=== PATIENT | female | born 1950 | race Asian ===

== ENCOUNTER 2018-08-29 15:13 | Inpatient (IN) | payer MEDICARE ==
[~2018-08-29] VITALS: Ht 162.6 cm; Wt 58.2 kg
[~2018-08-29 15:13] MED LIST: ASCO500T5 PO; ASPI325T17 PO; BENA10TA4 PO; CEFD300C37 PO; LACT1CAP43 PO; MYCO250C PO; OMEG10007 PO; PANT40TA3 PO; PRAV80TA PO; PRED-402 PO; TACR1CAP4 PO; VITA100C8 PO
[2018-08-29] MEDS ORDERED: SODIUM CHLORIDE FLUSH 10ML SYR IVF ONE (15:30)
[2018-08-29] MEDS ORDERED: SODIUM CHLORIDE 0.9% 1,000ML IVBOLUS ONE (15:30)
[2018-08-29 15:47] LABS: BASOPHILS # (AUTO) 0.05 x10^3/uL (0-0.1); BASOPHILS % (AUTO) 0 % (0-1); EOSINOPHILS % (AUTO) 0 % (1-7); LYMPHOCYTES # (AUTO) 0.43 x10^3/uL (1-3.4); LYMPHOCYTES % (AUTO) 3 % (22-44); MD NO; MEAN CORPUSCULAR HEMOGLOBIN 30.1 pg (27.0-34.8); MEAN CORPUSCULAR HGB CONC 33.3 g/dL (32.4-35.8); MEAN CORPUSCULAR VOLUME 90.3 fL (80-100); MONOCYTES % (AUTO) 3 % (2-9); NEUTROPHILS # (AUTO) 15.75 x10^3/uL (1.8-6.8); NEUTROPHILS % (AUTO) 94 % (42-75); PLATELET COUNT 280 x10^3/uL (130-400); RED BLOOD COUNT 3.67 x10^6/uL (3.82-5.3); RED CELL DISTRIBUTION WIDTH 12.4 % (9.6-15.2)
[2018-08-29 15:57] LABS: ALBUMIN 3.1 g/dL (3.4-5.0); ANION GAP 11 mmol/L (5-15); CALCIUM 8.5 mg/dL (8.5-10.1); CHLORIDE 93 mmol/L (98-107)
[2018-08-29 16:02] LABS: ALANINE AMINOTRANSFERASE 33 U/L (12-78); ALKALINE PHOSPHATASE 74 U/L (45-117); BILIRUBIN,TOTAL 0.4 mg/dL (0.2-1.0); CREATININE 1.26 mg/dL (0.55-1.02); TOTAL PROTEIN 7.9 g/dL (6.4-8.2); TROPONIN I < 0.015 ng/mL (0.000-0.045)
[2018-08-29] MEDS ORDERED: SODIUM CHLORIDE 0.9% 1,000 ML IV ONE (16:07)
[2018-08-29] MEDS ORDERED: ACETAMINOPHEN 500 MG TABLET PO ONE (16:30)
[2018-08-29] MEDS ORDERED: ASPIRIN 325 MG TABLET ONE (16:51)
[2018-08-29] MEDS ORDERED: CEFTRIAXONE 1,000 MG in SODIUM CHLORIDE 0.9% 50 ML IV ONE (17:00)
[2018-08-29 17:18] LABS: RAPID INFLUENZA A Negative (Negative); RAPID INFLUENZA B Negative (Negative)
[2018-08-29] MEDS: SODIUM CHLORIDE 0.9% 1,000 ML IV SCH (17:22)
[2018-08-29] MEDS ORDERED: CEFTRIAXONE PMX 2GM/50ML 50 ML ONE (17:26)
[2018-08-29] MEDS: CEFTRIAXONE PMX 2GM/50ML 50 ML IV SCH (17:29)
[2018-08-29] MEDS ORDERED: ACETAMINOPHEN 325 MG TABLET PO PRN ×2 (17:30)
[2018-08-29] MEDS ORDERED: TEMAZEPAM 15 MG CAPSULE PO PRN (17:30)
[2018-08-29] MEDS ORDERED: AZITHROMYCIN 500 MG in SODIUM CHLORIDE 0.9% 250 ML IV SCH (17:30)
[2018-08-29] MEDS ORDERED: LABETALOL 5MG/ML, 20ML IVPush PRN (17:30)
[2018-08-29] MEDS ORDERED: DOXY100C2 PO (17:36)
[2018-08-29] MEDS ORDERED: [UNRECOGNIZED DRUG - CODE] PO (17:36)
[2018-08-29 18:08] LABS: MEAN CORPUSCULAR HEMOGLOBIN 30.2 pg (27.0-34.8); MEAN CORPUSCULAR HGB CONC 33.3 g/dL (32.4-35.8); MEAN CORPUSCULAR VOLUME 90.8 fL (80-100); MEAN PLATELET VOLUME 6.9 fL (7.4-10.4); PLATELET COUNT 236 x10^3/uL (130-400); RED BLOOD COUNT 3.22 x10^6/uL (3.82-5.3); RED CELL DISTRIBUTION WIDTH 12.7 % (9.6-15.2)
[2018-08-29] MEDS ORDERED: ONDANSETRON 2MG/ML, 2ML IVPush PRN (18:30)
[2018-08-29 18:32] LABS: HEMOGLOBIN A1C 6.1 % (4.2-6.3)
[2018-08-29] MEDS: ENOXAPARIN 40 MG/0.4 ML SQ SCH (18:38)
[2018-08-29] MEDS: OMEGA-3/FISH OIL CAPSULE PO SCH ×2 (18:38→21:00)
[2018-08-29 18:40] LABS: BASOPHILS # (AUTO) 0.02 x10^3/uL (0-0.1); BASOPHILS % (AUTO) 0 % (0-1); EOSINOPHILS % (AUTO) 0 % (1-7); LYMPHOCYTES # (AUTO) 0.46 x10^3/uL (1-3.4); LYMPHOCYTES % (AUTO) 3 % (22-44); MD SCAN; MONOCYTES # (AUTO) 0.81 x10^3/uL (0.2-0.8); MONOCYTES % (AUTO) 5 % (2-9); NEUTROPHILS # (AUTO) 15.18 x10^3/uL (1.8-6.8); NEUTROPHILS % (AUTO) 92 % (42-75)
[2018-08-29] MEDS ORDERED: AZITHROMYCIN 500 MG in DEXTROSE 5% 250 ML IV SCH (18:57)
[2018-08-29 20:52] VITALS: BP 115/64
[2018-08-29] MEDS: AZITHROMYCIN 500 MG in DEXTROSE 5% 250 ML IV SCH (21:05)
[2018-08-29] MEDS: PRAVASTATIN 40 MG TABLET PO SCH (21:06)
[2018-08-29] MEDS: VITAMIN E 400 UNITS CAPSULE PO SCH (21:07)
[2018-08-29] MEDS: TACROLIMUS 1 MG CAPSULE PO SCH (21:07)
[2018-08-29 22:33] LABS: MICROSCOPIC AUTO
[2018-08-29 22:36] LABS: CULTURE INDICATED? YES
[2018-08-30 00:36] VITALS: BP 108/55
[2018-08-30] MEDS ORDERED: FLU VACC QS2017-18 (36MOS+) UP/PF 0.5 ML IM-VACC ONE (03:00)
[2018-08-30] MEDS: SODIUM CHLORIDE 0.9% 1,000 ML IV SCH ×3 (03:32→17:47)
[2018-08-30 05:25] LABS: ALBUMIN 2.5 g/dL (3.4-5.0); ANION GAP 8 mmol/L (5-15); CALCIUM 8.4 mg/dL (8.5-10.1); CHLORIDE 106 mmol/L (98-107)
[2018-08-30 05:31] LABS: BILIRUBIN,TOTAL 0.5 mg/dL (0.2-1.0); CREATININE 0.92 mg/dL (0.55-1.02)
[2018-08-30 05:32] LABS: ALANINE AMINOTRANSFERASE 25 U/L (12-78); ALKALINE PHOSPHATASE 62 U/L (45-117); TOTAL PROTEIN 6.6 g/dL (6.4-8.2)
[2018-08-30 07:15] VITALS: BP 136/73
[2018-08-30] MEDS: TACROLIMUS 1 MG CAPSULE PO SCH ×2 (08:26→20:43)
[2018-08-30] MEDS: OMEGA-3/FISH OIL CAPSULE PO SCH ×3 (08:28→20:42)
[2018-08-30] MEDS: ASCORBIC ACID 500 MG TABLET PO SCH (08:28)
[2018-08-30] MEDS: LACTOBACILLUS CHEW TABLET PO SCH (08:28)
[2018-08-30] MEDS: VITAMIN E 400 UNITS CAPSULE PO SCH ×2 (08:28→20:42)
[2018-08-30] MEDS: PANTOPROZOLE 40MG TABLET PO SCH (08:28)
[2018-08-30] MEDS ORDERED: POTASSIUM PHOSPHATE 44 MEQ in SODIUM CHLORIDE 0.9% 500 ML IV ONE (08:30)
[2018-08-30] MEDS ORDERED: MAGNESIUM SULFATE PMX 2GM/50ML 50 ML IV ONE (08:30)
[2018-08-30] MEDS: BENAZEPRIL 10 MG TABLET PO SCH (08:40)
[2018-08-30] MEDS ORDERED: [UNRECOGNIZED DRUG - REMARK] MC PRN (09:00)
[2018-08-30] MEDS: GUAIFENESIN 200 MG TABLET PO SCH ×3 (09:21→22:48)
[2018-08-30 10:01] LABS: CLOSTRIDIUM DIFFICILE ANTIGEN NEGATIVE; CLOSTRIDIUM DIFFICILE TOXIN NEGATIVE (Negative)
[2018-08-30 13:35] VITALS: BP 132/74
[2018-08-30] MEDS: CEFTRIAXONE PMX 2GM/50ML 50 ML IV SCH (17:45)
[2018-08-30 18:39] VITALS: BP 140/81
[2018-08-30] MEDS: ENOXAPARIN 40 MG/0.4 ML SQ SCH (18:43)
[2018-08-30] MEDS: PRAVASTATIN 40 MG TABLET PO SCH (20:43)
[2018-08-30] MEDS: AZITHROMYCIN 500 MG in DEXTROSE 5% 250 ML IV SCH (20:59)
[2018-08-31 00:47] VITALS: BP 128/75
[2018-08-31] MEDS: SODIUM CHLORIDE 0.9% 1,000 ML IV SCH ×2 (03:02→20:47)
[2018-08-31 05:17] LABS: BASOPHILS # (AUTO) 0.02 x10^3/uL (0-0.1); BASOPHILS % (AUTO) 0 % (0-1); EOSINOPHILS # (AUTO) 0.05 x10^3/uL (0-0.4); EOSINOPHILS % (AUTO) 1 % (1-7); LYMPHOCYTES # (AUTO) 1.84 x10^3/uL (1-3.4); LYMPHOCYTES % (AUTO) 17 % (22-44); MD NO; MEAN CORPUSCULAR HEMOGLOBIN 30.2 pg (27.0-34.8); MEAN CORPUSCULAR HGB CONC 33.4 g/dL (32.4-35.8); MEAN CORPUSCULAR VOLUME 90.4 fL (80-100); MEAN PLATELET VOLUME 6.7 fL (7.4-10.4); MONOCYTES # (AUTO) 0.74 x10^3/uL (0.2-0.8); MONOCYTES % (AUTO) 7 % (2-9); NEUTROPHILS # (AUTO) 8.22 x10^3/uL (1.8-6.8); NEUTROPHILS % (AUTO) 76 % (42-75); PLATELET COUNT 287 x10^3/uL (130-400); RED BLOOD COUNT 3.42 x10^6/uL (3.82-5.3); RED CELL DISTRIBUTION WIDTH 12.7 % (9.6-15.2)
[2018-08-31 05:20] LABS: ALANINE AMINOTRANSFERASE 23 U/L (12-78); ALBUMIN 2.6 g/dL (3.4-5.0); ANION GAP 9 mmol/L (5-15); CALCIUM 8.8 mg/dL (8.5-10.1); CHLORIDE 111 mmol/L (98-107)
[2018-08-31 05:23] LABS: ALKALINE PHOSPHATASE 62 U/L (45-117); BILIRUBIN,TOTAL 0.2 mg/dL (0.2-1.0); TOTAL PROTEIN 6.6 g/dL (6.4-8.2)
[2018-08-31 07:13] VITALS: BP 123/72
[2018-08-31] MEDS: TACROLIMUS 1 MG CAPSULE PO SCH ×2 (09:06→21:08)
[2018-08-31] MEDS: BENAZEPRIL 10 MG TABLET PO SCH (09:06)
[2018-08-31] MEDS: GUAIFENESIN 200 MG TABLET PO SCH ×3 (09:07→21:09)
[2018-08-31] MEDS: PANTOPROZOLE 40MG TABLET PO SCH (09:07)
[2018-08-31] MEDS: ASCORBIC ACID 500 MG TABLET PO SCH (09:07)
[2018-08-31] MEDS: OMEGA-3/FISH OIL CAPSULE PO SCH ×3 (09:07→21:08)
[2018-08-31] MEDS: LACTOBACILLUS CHEW TABLET PO SCH (09:08)
[2018-08-31] MEDS: VITAMIN E 400 UNITS CAPSULE PO SCH ×2 (09:08→21:00)
[2018-08-31] MEDS ORDERED: MAGNESIUM SULFATE PMX 4GM/100M 100 ML IV ONE (10:00)
[2018-08-31] MEDS ORDERED: POTASSIUM PHOSPHATE 44 MEQ in SODIUM CHLORIDE 0.9% 500 ML IV ONE (10:00)
[2018-08-31 13:05] VITALS: BP 131/71
[2018-08-31] MEDS: ENOXAPARIN 40 MG/0.4 ML SQ SCH (18:26)
[2018-08-31 18:44] VITALS: BP 131/79
[2018-08-31] MEDS: CEFTRIAXONE PMX 2GM/50ML 50 ML IV SCH (19:51)
[2018-08-31] MEDS: AZITHROMYCIN 500 MG in DEXTROSE 5% 250 ML IV SCH (20:46)
[2018-08-31] MEDS: PRAVASTATIN 40 MG TABLET PO SCH (21:09)
[2018-09-01 03:10] VITALS: BP 132/72
[2018-09-01] MEDS: SODIUM CHLORIDE 0.9% 1,000 ML IV SCH ×3 (05:02→21:00)
[2018-09-01 05:39] LABS: BASOPHILS # (AUTO) 0.04 x10^3/uL (0-0.1); BASOPHILS % (AUTO) 1 % (0-1); EOSINOPHILS % (AUTO) 2 % (1-7); LYMPHOCYTES # (AUTO) 1.54 x10^3/uL (1-3.4); LYMPHOCYTES % (AUTO) 19 % (22-44); MD NO; MEAN CORPUSCULAR HEMOGLOBIN 29.9 pg (27.0-34.8); MEAN CORPUSCULAR HGB CONC 32.9 g/dL (32.4-35.8); MEAN CORPUSCULAR VOLUME 90.6 fL (80-100); MEAN PLATELET VOLUME 6.8 fL (7.4-10.4); MONOCYTES # (AUTO) 0.58 x10^3/uL (0.2-0.8); MONOCYTES % (AUTO) 7 % (2-9); NEUTROPHILS # (AUTO) 5.92 x10^3/uL (1.8-6.8); NEUTROPHILS % (AUTO) 72 % (42-75); PLATELET COUNT 295 x10^3/uL (130-400); RED BLOOD COUNT 3.25 x10^6/uL (3.82-5.3)
[2018-09-01 05:49] LABS: ALANINE AMINOTRANSFERASE 23 U/L (12-78); ALBUMIN 2.4 g/dL (3.4-5.0); ANION GAP 10 mmol/L (5-15); CALCIUM 8.3 mg/dL (8.5-10.1); CHLORIDE 112 mmol/L (98-107); CREATININE 1.08 mg/dL (0.55-1.02)
[2018-09-01 05:52] LABS: ALKALINE PHOSPHATASE 63 U/L (45-117); BILIRUBIN,TOTAL 0.2 mg/dL (0.2-1.0); TOTAL PROTEIN 6.3 g/dL (6.4-8.2)
[2018-09-01 07:17] VITALS: BP 139/75
[2018-09-01] MEDS: GUAIFENESIN 200 MG TABLET PO SCH ×3 (08:49→19:45)
[2018-09-01] MEDS: VITAMIN E 400 UNITS CAPSULE PO SCH ×2 (08:49→19:45)
[2018-09-01] MEDS: LACTOBACILLUS CHEW TABLET PO SCH (08:49)
[2018-09-01] MEDS: ASCORBIC ACID 500 MG TABLET PO SCH (08:49)
[2018-09-01] MEDS: TACROLIMUS 1 MG CAPSULE PO SCH ×2 (08:50→19:45)
[2018-09-01] MEDS: BENAZEPRIL 10 MG TABLET PO SCH (08:50)
[2018-09-01] MEDS: PANTOPROZOLE 40MG TABLET PO SCH (08:50)
[2018-09-01] MEDS: OMEGA-3/FISH OIL CAPSULE PO SCH ×3 (08:50→19:44)
[2018-09-01 12:37] VITALS: BP 128/73
[2018-09-01] MEDS: ENOXAPARIN 40 MG/0.4 ML SQ SCH (18:12)
[2018-09-01 18:25] VITALS: BP 138/82
[2018-09-01] MEDS: PRAVASTATIN 40 MG TABLET PO SCH (19:45)
[2018-09-01] MEDS: CEFTRIAXONE PMX 2GM/50ML 50 ML IV SCH (20:44)
[2018-09-01] MEDS ORDERED: AZITHROMYCIN 500 MG in SODIUM CHLORIDE 0.9% 250 ML IV SCH (21:00)
[2018-09-02 02:04] VITALS: BP 136/75
[2018-09-02 07:16] VITALS: BP 144/69
[2018-09-02] MEDS: SODIUM CHLORIDE 0.9% 1,000 ML IV SCH (08:02)
[2018-09-02] MEDS: TACROLIMUS 1 MG CAPSULE PO SCH (08:53)
[2018-09-02] MEDS: LACTOBACILLUS CHEW TABLET PO SCH (08:53)
[2018-09-02] MEDS: BENAZEPRIL 10 MG TABLET PO SCH (08:53)
[2018-09-02] MEDS: PANTOPROZOLE 40MG TABLET PO SCH (08:53)
[2018-09-02] MEDS: GUAIFENESIN 200 MG TABLET PO SCH (08:53)
[2018-09-02] MEDS: VITAMIN E 400 UNITS CAPSULE PO SCH (08:53)
[2018-09-02] MEDS: ASCORBIC ACID 500 MG TABLET PO SCH (08:53)
[2018-09-02] MEDS: OMEGA-3/FISH OIL CAPSULE PO SCH (08:53)
[2018-09-02] MEDS ORDERED: CEFD300C37 PO (11:06)
[2018-09-02] MEDS ORDERED: GUAI-110 PO (11:06)
[2018-09-02] MEDS ORDERED: AZIT500T5 PO (11:06)
== END 2018-09-02 14:00 | disposition home or self-care (01) | DRG 871 ==
LOC: SUATTDRO 17:16 → ED 17:42 → EDIP 17:47 → 5SO 18:25 → DCLOUNGE 09-02 13:41
PROVIDERS: ADMIT Internal Medicine; ATTEND Internal Medicine
DX: A41.9 Sepsis, unspecified organism (principal); J18.9 Pneumonia, unspecified organism; N17.0 Acute kidney failure with tubular necrosis; N39.0 Urinary tract infection, site not specified; E87.1 Hypo-osmolality and hyponatremia; I42.9 Cardiomyopathy, unspecified; Z66 Do not resuscitate; E78.5 Hyperlipidemia, unspecified; E83.42 Hypomagnesemia; E83.39 Other disorders of phosphorus metabolism; I10 Essential (primary) hypertension; J06.9 Acute upper respiratory infection, unspecified; K21.9 Gastro-esophageal reflux disease without esophagitis; Z80.49 Family history of malignant neoplasm of other genital organs; Z82.49 Family history of ischemic heart disease and other diseases of the circulatory system; Z79.899 Other long term (current) drug therapy; Z88.8 Allergy status to other drugs, medicaments and biological substances
CPT/HCPCS: 36415; 71045; 80053; 80197; 81001; 83036; 83605; 83690; 83735; 84100; 84443; 84484; 85025; 87040; 87070; 87086; 87205; 87324; 87400; 89055; 90656; 93005; 96360; G0378; J0456; J0696; J1650; J7060; J7507; J7517; J3475; J7030; J7040; J7050; J7512